=== PATIENT | female | born 1950 | race Caucasian/White ===

== ENCOUNTER 2016-08-16 00:49 | Day surgery (SDC) | payer MEDICARE, MEDICAID ==
[~2016-08-16] VITALS: Ht 167.6 cm; Wt 54.0 kg
[~2016-08-16 00:49] MED LIST: ALPR0.5T PO; BUSP15 PO; CICL34.62 TP; DIAZ10TA3 PO; HYDR1TAB92 PO; IBUP-1152 PO; MORP15TA PO; NIAC-9 PO; OMEP20CA11 PO; PSYL0.5234 PO; RANI300T4 PO; ZLP5T PO
[2016-08-16] MEDS ORDERED: Propofol 10 mg/mL 20 mL Inj ONE (00:50)
[2016-08-16] MEDS ORDERED: Lactated Ringer's 1,000 ML IV ONE (06:00)
[2016-08-16 11:12] VITALS: BP 152/74; PULSE 65; RESP 16; O2SAT 98
[2016-08-16] MEDS ORDERED: Lactated Ringer's 1,000 ML IV SCH (11:52)
--- NOTE | 2016-08-16 11:52 | PCM.HPANE ---
Patient Data Date of Service: Aug 16, 2016 Surgeon Admitting Provider: Attending Provider:Cas Murphy MD Primary Care Physician:Yohannes Bella PA-C Other Provider:Marc Amin Anesthesia Reason for Visit Tubular Adenoma/Barretts Ht/WT & BMI Height (Feet): 5 Height (Inches): 6 Weight (Kilograms): 53.98 Body Mass Index 19.00 Allergies Coded Allergies: Contrast Media (Verified Allergy, Severe, 01/16/09) midazolam HCl (Verified Allergy, Severe, 01/16/09) prochlorperazine edisylate (Verified Allergy, Severe, 01/16/09) prochlorperazine maleate (Verified Allergy, Severe, 01/16/09) quetiapine fumarate (Verified Allergy, Severe, 01/16/09) Metronidazole HCl (Verified Allergy, Unknown, 11/26/13) just about killed me acetaminophen (Verified Allergy, Unknown, 08/16/16) aspirin (Verified Allergy, Unknown, 08/16/16) iodine (Verified Allergy, Unknown, 08/16/16) metronidazole (Verified Allergy, Unknown, 11/26/13) just about killed me oxycodone (Verified Allergy, Unknown, 08/16/16) Past Anesthesia History Anesthesia History: Denies:: Abnormal Airway, Anesthesia Reactions, Difficult Intubation, Fam Anesthesia Reaction, Fam Malignant Hypertherm, Malignant Hyperthermia Diabetes History Hx Diabetes?: No MRSA MRSA: No Medications Home Meds Incl Beta Brenda: No Reported Medications Diazepam 10 Mg [id number] Mg PO TID PRN For Anxiety Ref 0 08/15/16 IBUPROFEN-Expunged Drug, Do Not Renew! 800 Mg [id number] Mg PO TID PRN pain WITH FOOD 05/12/13 Omeprazole-Expunged Drug, Do Not Renew! 20 Mg Capsule.dr20 Mg PO DAILYAC Ref 0 05/12/13 Ranitidine Hcl (Zantac)300 Mg Trrppu950 Mg PO HS 05/12/13 Psyllium-Expunged Drug, Do Not Renew! (Natural Fiber-Expunged Drug, Do Not Renew !)0.52 G Capsule0.52 G Po Daily 05/12/13 NIACIN-Expunged Drug, Do Not Renew! (NIACIN ER-Expunged Drug, Do Not Renew!)500 Mg Tab.er.44x576 Mg PO DAILY 05/12/13 Alprazolam-Expunged Drug, Do Not Renew! 0.5 Mg Tablet0.25-0.5 Mg PO DAILY PRN panic attacks/anxiety For Anxiety 05/12/13 Ciclopirox/Ure/Camph/Menth/Euc (Ciclopirox 8% Treatment Kit)34.6 Ml Solution Ml TP HS Apply by topical route every day to the affected area(s) preferably at bedtime or 8 hours before washing. 05/12/13 Diazepam-Expunged Drug, Do Not Renew! 10 Mg Empqua85 Mg PO QID Ref 0 01/18/09 Buspirone-Expunged Drug, Do Not Renew! 15 Mg Hdyfqr92 Mg PO QID Ref 0 01/18/09 Zolpidem-Expunged Drug, Do Not Renew! 5 Mg Tab5 Mg PO HS Ref 0 01/18/09 Discontinued Reported Medications Hydrocod/APAP-Expunged, Do Not Renew! (Hydrocod/APAP 7.5/325-Expunged, Do Not Renew!)1 Tab Tablet1 Tab PO Q6 PRN pain 05/12/13 Morphine-Expunged Drug, Do Not Renew! (Morphine IR-Expunged Drug, Do Not Renew!) 15 Mg Vkgmrs69-32 Mg PO Q6 PRN Ref 0 01/18/09 History History of ENT Problems?: Yes HEENT History: Positive for:: Dysphagia Denies:: Abnormal Airway Difficult Intubation Hearing Problem Denture Type: None Teeth Condition: Broken Teeth Missing Teeth Hx of Heart Problems?: No Cardiovascular History: Denies:: AICD Atrial Fibrillation Chest Pain Hypertension Pacemaker Valvular Heart Disease Hx of Respiratory Problem?: No Respiratory History: Denies:: Asthma COPD Cough Hemoptysis Pneumonia Tuberculosis Hx Neurologic Problems?: Yes Neurological History: Denies:: CVA Hx of GI Problems?: Yes Hx of Problems?: No Female Hx: Denies:: Currently Endometriosis Pelvic Inflammatory Problems with Breasts? Hx Musculoskeletal Problems?: Yes Musculoskeletal History: Positive for:: Musculoskeletal Trauma Denies:: Fibromyalgia Joint Replacement Hx of Psycho/Social Problems?: Yes Psycho Social History: Positive for:: Anxiety (PTSD) Denies:: Hx Depression Hx Surgeries?: Yes Hx Any Other Health Problems?: Yes Other History: Denies:: Cancer Endocrine Disease Thyroid Disease History Blood Transfusions: Positive for:: Blood Transfusions (states when a child) Denies:: Blood Transfuse Reaction Hx Diabetes: No Hx Alcohol Use: YesHx Substance Use: NoHave You Smoked inLast 12 mo: Yes Stop/Bang Treated for Sleep Apnea?: No Do You Have a CPAP Machine?: No S-Snoring: Do You Snore Loudly: No T-Tired: feel tired, fatigued: No O-Obsered: Observed not breath: No P-Blood Pressure: treated: No B- Body Mass Index > 35 kg/m2: No A- Age over 50: Yes N- Neck Large Circumference: No G- Gender Male: No MANOJ Total Score: 1 MANOJ Risk Assessment: Low Risk, <3 Yes Risk Assessment Category Category 1A: Patient has history of documented sleep apnea, and HAS NOT received any narcotic, sedative or anesthesia administration during this stay. Category 1B: Patient has history of documented sleep apnea, and HAS received any narcotic , sedative or anesthesia administration during this stay Category 2: Patient has SUSPECTED Obstructive Sleep Apnea, and HAS received any narcotic , sedative or anesthesia administration during this stay. Category 3: Patient has SUSPECTED Obstructive Sleep Apnea and HAS NOT received narcotic, sedative or anesthesia administration during this stay. Category 4: Outpatient in Procedural Areas with known sleep apnea or who screen positive for High Risk via the STOP/BANG questionnaire. Exam Exam Vital Signs Vital Signs Date Time Temp Pulse Resp B/P Pulse Ox O2 Delivery O2 Flow Rate FiO2 08/16/16 11:12 36.6 65 16 152/74 98 Room Air General Appearance: Alert, Oriented X3, Cooperative, No Acute Distress HEENT/AIRWAY: MP 2 Lungs: Normal Air Movement Heart: Exam Unremarkable Meds/Labs/Diagnostics Admission Meds Current Medications Lactated Ringer's (Lr) 1,000 ml @ 10 mls/hr Q24H ONCE IV Last administered on 08/16/16t 11:28; Start 08/16/16 at 06:00; Stop 08/17/16 at 05:59 Plan Impression Patient chart reviewed, patient interviewed and anesthestic plan with risks, benefits, and alternatives discussed, and informed consent obtained. ASA Physical Status: ASA2 Mod Systemic Disease Anesthetic Plan: MAC Bene/Risks/Altern/Consents: Yes HP Complete Prior to Induction: Yes Ryan Vang MD Aug 16, 2016 11:52
[2016-08-16] MEDS ORDERED: MetoCLOpramide 5 mg/mL 2 mL Inj IVPUSH PRN (11:55)
[2016-08-16] MEDS ORDERED: Ondansetron 2 mg/mL 2 mL Inj IVPUSH PRN (11:55)
[2016-08-16 12:44] VITALS: BP 142/73; PULSE 64; RESP 14; O2SAT 100
--- NOTE | 2016-08-16 12:52 | PCM.ANEP1 ---
Post Anesthesia PACU Phase 1 Assessment Date of Service: Aug 16, 2016 Vital Signs Vital Signs Date Time Temp Pulse Resp B/P Pulse Ox O2 Delivery O2 Flow Rate FiO2 08/16/16 12:44 36.4 64 14 142/73 100 Room Air 08/16/16 11:12 36.6 65 16 152/74 98 Room Air Anesthetic Administered: MAC Level of Alertness: Sleepy, easy to arouse MCCLELLAND's with Equal Strength: Yes Pain: No Nausea or Vomiting: No CV Function & Hydration Stable: Yes Airway Device: Oxygen Delivery: Room Air Lungs: Normal Air Movement Dermatome Level: Full Sensation PACU Phase 2 Assessment Complications: No Follow up Care: N/A Patient Instructions Provided: N/A Ryan Vang MD Aug 16, 2016 12:52
[2016-08-16 12:54] VITALS: BP 170/84; PULSE 67; RESP 16; O2SAT 94
[2016-08-16 13:04] VITALS: BP 170/84; RESP 16; O2SAT 93
[2016-08-16 13:14] VITALS: BP 197/85; PULSE 56; RESP 16; O2SAT 100
[2016-08-16 13:22] VITALS: BP 175/83; PULSE 82; O2SAT 99
--- NOTE | 2016-08-16 13:54 | ENDO ---
[address] [address] ENDOSCOPY PROCEDURE PATIENT: JACQUELIN WATTS : 1950 MR#: [id number] ADMIT: 08/16/2016 JOB ID: [id number] PROCEDURE: Esophagogastroduodenoscopy, biopsy, with hot snare polypectomy and argon plasma coagulation. 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 POSTOPERATIVE DIAGNOSES: 1. Normal upper endoscopy, status post biopsy. 2. A broad 3 cm polyp seen in the ascending colon, status post hot snare polypectomy, followed by hemoclip placement followed by argon placement coagulation to burn off the edges of the polyp itself. ANESTHESIA: Monitored anesthesia care. COMPLICATIONS: None. BLOOD LOSS: Minimal. DESCRIPTION OF PROCEDURE: After risks and benefits were explained to the patient, informed consent was obtained. After anesthesia administered, a colonoscope was inserted from rectum to the cecum. Mucosa carefully examined. Prep of the patient was excellent. After the procedure was done, the scope was withdrawn and the procedure terminated. FINDINGS: Upon inspection of the anus, no masses, hemorrhoids, ulcers, or fissures that were seen throughout the entire examination. There was a broad-based 3 cm polyp seen in the ascending colon. Piecemeal hot snare polypectomy was first performed followed by hemoclip placement and biopsy and APC around the edges. GI spot tattoo was then deployed afterwards. Retroflexion was normal. IMPRESSION: 1. Normal upper endoscopy, status post biopsy. 2. A 3 cm ascending colon polyp, status post hot snare polypectomy in piecemeal fashion, follow by biopsy, argon plasma coagulation and hemoclip placement. Status post gastrointestinal spot tattoo. RECOMMENDATIONS: Await pathology results. Repeat colonoscopy in six months to re-evaluate this area of the ascending colon.
--- NOTE | 2016-08-17 14:51 | PATH ---
SURGICAL PATHOLOGY Attending Physician:Cas Murphy MD CASE STATUS: Signed Out PATIENT NAME: JACQUELIN CANNON PID: [id number] : 1950 DATE COLLECTED:08/16/2016 20:17 SPECIMEN: 1: Stomach, Antrum, Biopsy 2: Gastric, Biopsy 3: Esophagus, Biopsy 4: Colon, Polyp CLINICAL HISTORY: 1). ANTRUM BIOPSY 2). GASTRIC BODY BIOPSY 3). DISTAL ESOPHAGUS 4). ASCENDING POLYP FINAL DIAGNOSIS: 1.GASTRIC ANTRUM BIOPSY: FRAGMENTS OF GASTRIC ANTRAL MUCOSA NEGATIVE FOR SIGNIFICANT INFLAMMATION. Negative for evidence of Helicobacter on H&E stain. Negative for intestinal metaplasia. Negative for dysplasia and malignancy. 2.GASTRIC BODY BIOPSIES: FRAGMENTS OF GASTRIC FUNDIC MUCOSA NEGATIVE FOR SIGNIFICANT INFLAMMATION. Negative for evidence of Helicobacter on H&E stain. Negative for intestinal metaplasia. Negative for dysplasia and malignancy. 3.DISTAL ESOPHAGUS BIOPSY: SQUAMOUS MUCOSA AND GASTRIC CARDIA-TYPE MUCOSA POSITIVE FOR SPECIALIZED METAPLASIA OF GARCIA' S-TYPE ESOPHAGUS. Negative for dysplasia and malignancy. Negative for squamous intraepithelial eosinophils. 4.ASCENDING COLON POLYP: MIXED TUBULAR AND VILLIFORM ADENOMA INVOLVING MULTIPLE BIOPSY FRAGMENTS. ICD10 K22.70 GROSS DESCRIPTION: The specimen is received in four formalin filled containers labeled with the patient's name. 1). The specimen is sublabeled "antrum" and consists of a 0.3 x 0.3 x 0.3 CM portion of tissue which is entirely submitted in cassette 1A. 2). The specimen is sublabeled "gastric body" and consists of 2 portions of tissue which aggregate to 0.4 x 0.3 x 0.2 CM. The specimen is entirely submitted in cassette 2A. 3). The specimen is received in one formalin filled container labeled with the patient's name, sublabeled "distal esophagus" and consists of 2 portions of tissue which aggregate to 0.4 x 0.3 x 0.2 CM. The specimen is entirely submitted in cassette 3A. 4). The specimen is sublabeled "ascending polyp" and consists of multiple portions of tissue which aggregate to 0.7 0.5 x 0.4 CM. The specimen is filtered and entirely submitted in cassette 4A. 08/16/2016 DAC MICRO DESCRIPTION: See diagnosis. ICD-9 CODES: CPT CODES: 1: 10333 2: 60158 3: 27490 4: 99801 Electronically Signed Out Evert Cullen MD [facility] [address], [place] [address] Technical component performed at [facility], [address], [place], [address]
== END 2016-08-16 23:59 | disposition home or self-care (01) ==
LOC: END 00:49
PROVIDERS: ATTEND Internal Medicine Gastroenterology
DX: Z12.11 Encounter for screening for malignant neoplasm of colon (principal); D12.2 Benign neoplasm of ascending colon; K22.70 Barrett's esophagus without dysplasia; K21.9 Gastro-esophageal reflux disease without esophagitis; G47.00 Insomnia, unspecified; E78.5 Hyperlipidemia, unspecified; E55.9 Vitamin D deficiency, unspecified; F41.0 Panic disorder [episodic paroxysmal anxiety]; F43.10 Post-traumatic stress disorder, unspecified; G90.50 Complex regional pain syndrome I, unspecified; F12.90 Cannabis use, unspecified, uncomplicated
CPT/HCPCS: 43239; 45381; 45385; J7120